=== PATIENT | female | born 1995 | race African-American/Black ===

== ENCOUNTER 2016-11-12 16:46 | Emergency (ER) | payer MEDICAID, OTHER ==
[~2016-11-12] VITALS: Ht 157.5 cm; Wt 57.2 kg
[2016-11-12 17:10] VITALS: BP 130/76
[2016-11-12] MEDS: ACETAMINOPHEN 325 MG TAB PO ONE (17:16)
== END 2016-11-12 19:20 | disposition left against medical advice (07) ==
LOC: ER 17:05
DX: R51 Headache (principal); R52 Pain, unspecified; Z53.21 Procedure and treatment not carried out due to patient leaving prior to being seen by health care provider

== ENCOUNTER 2017-09-27 02:39 | Emergency (ER) | payer MEDICAID ==
[~2017-09-27] VITALS: Ht 157.5 cm; Wt 46.7 kg
[2017-09-27 02:53] VITALS: BP 119/80
[2017-09-27] MEDS ORDERED: IPRATROPIUM BROM 0.5 MG/2.5ML INH SOL NEB ONE ×2 (03:00→07:30)
[2017-09-27] MEDS ORDERED: ALBUTEROL SULF 2.5 MG/0.5ML(0.5%) NEB SOLN NEB ONE ×2 (03:00→07:30)
[2017-09-27] MEDS ORDERED: methylPREDNISolone SOD SUCC 125 MG/2 ML VL IM ONE (07:30)
[2017-09-27] MEDS ORDERED: cefTRIAXone SOD 1,000 MG VL IM ONE (08:00)
== END 2017-09-27 08:32 | disposition home or self-care (01) ==
LOC: ER 02:39
DX: J45.909 Unspecified asthma, uncomplicated (principal); J02.9 Acute pharyngitis, unspecified; M19.90 Unspecified osteoarthritis, unspecified site
CPT/HCPCS: 71045; 94640; 96372; 99284; J0696